=== PATIENT | female | born 1955 | race Caucasian/White ===

== ENCOUNTER → 2016-09-24 | Outpatient (CLI) | payer BC ==
--- NOTE | 2016-09-25 13:16 | MAMMOGRAPHY REPORT ---
THIS REPORT HAS BEEN AMENDED. BILATERAL DIGITAL SCREENING MAMMOGRAM TOMOSYNTHESIS WITH CAD: 09/24/2016 CLINICAL HISTORY: Routine screening examination. TECHNIQUE: Bilateral breast tomosynthesis in addition to standard 2D mammography was performed. Curr ent study was also evaluated with a Computer Aided Detection (CAD) system. COMPARISON: No prior exams were available for comparison. BREAST COMPOSITION: The tissue of both breasts is heterogeneously dense, which may obscure small ma sses. FINDINGS: There is an 18 mm asymmetry in the superior posterior right breast, only seen on the MLO view. Although this could represent normal overlapping tissue, additional spot compression tomosynt hesis views and possibly ultrasound are recommended to exclude an underlying mass, if prior outside mammograms are not obtained in a timely manner. There are benign coarse calcifications in the right breast. No other suspicious mass, architectural distortion or cluster of microcalcifications is seen. IMPRESSION: ACR BI-RADS CATEGORY 0: INCOMPLETE EVALUATION: NEED ADDITIONAL IMAGING EVALUATION The 18 mm asymmetry in the superior, posterior right breast needs compairson to prior outside mammog annette. If they are not obtained in a timely manner, additional spot compression tomosynthesis views a nd possibly ultrasound are recommended. The patient will be called to schedule an appointment. Approximately 10% of breast cancers are not detected with mammography. A negative mammographic repor t should not delay biopsy if a clinically suggestive mass is present. Manjula Quezada M.D. ay/:09/24/2016 15:37:26 Code Enforcement Inspector: Svetlana BENITEZ(Ever)([place]), [facility] letter sent: Need Priors 0 BI-RADS Code: ACR BI-RADS Category 0: Incomplete Evaluation: Need Additional Imaging Evaluation AMENDMENT: 10/15/2016 Manjula Quezada M.D. Prior [facility] 07/29/2011, 03/22/2013 and 08/18/2014 became avail able for review. The 18 mm asymmetry in the superior posterior right breast remains increasingly co nspicuous particularly on the tomosynthesis images comparing to the prior outside mammograms. Altho ugh this could represent overlapping tissue, additional spot compression tomosynthesis views and pos sibly ultrasound are recommended. The left breast appears stable comparing to the prior outside [place] mograms. Amended BI-RADS: ACR BI-RADS Category 0: Incomplete Evaluation: Need Additional Imaging Evaluation letter sent: [facility] 0
== END | disposition home or self-care (01) ==
LOC: C.MAMM 13:36
PROVIDERS: ATTEND Family Medicine
DX: Z12.31 Encounter for screening mammogram for malignant neoplasm of breast (principal); N64.89 Other specified disorders of breast

== ENCOUNTER → 2016-09-30 | Outpatient (CLI) | payer BC | END | disposition home or self-care (01) | LOC: C.MAMM 14:21 | PROVIDERS: ATTEND Internal Medicine Rheumatology | DX: M81.0 Age-related osteoporosis without current pathological fracture (principal); E55.9 Vitamin D deficiency, unspecified; Z79.83 Long term (current) use of bisphosphonates; M85.851 Other specified disorders of bone density and structure, right thigh; M85.852 Other specified disorders of bone density and structure, left thigh ==

== ENCOUNTER → 2016-10-24 | Outpatient (CLI) | payer BC ==
--- NOTE | 2016-10-24 13:04 | MAMMOGRAPHY REPORT ---
UNILATERAL RIGHT DIGITAL DIAGNOSTIC MAMMOGRAM TOMOSYNTHESIS: 10/24/2016 CLINICAL HISTORY: Callback from screening mammogram for right breast asymmetry. TECHNIQUE: Breast tomosynthesis in addition to standard 2D mammography was performed. Spot karmen dennis right MLO and right ML 2-D and tomosynthesis images were obtained. COMPARISON: Comparison is made to exam dated: 09/24/2016 mammogram - [facility]. BREAST COMPOSITION: The tissue of the right breast is heterogeneously dense, which may obscure smal l masses. FINDINGS: The previously described asymmetry seen within the right superior posterior breast efface s to a baseline appearance on the additional spot compression views, and has the appearance of arlyn l overlapping fibroglandular tissue on the tomosynthesis images. No suspicious mass or architectura l distortion is noted in this region on the additional views. Findings are benign and compatible wi th normal overlapping fibroglandular tissue. IMPRESSION: ACR BI-RADS CATEGORY 2: BENIGN The right breast asymmetry effaces on the additional views, and is benign and compatible with normal overlapping fibroglandular tissue. There is no mammographic evidence of malignancy. A 1 year scree jaclyn mammogram is recommended. The patient has been verbally notified of the results. Approximately 10% of breast cancers are not detected with mammography. A negative mammographic repor t should not delay biopsy if a clinically suggestive mass is present. Lurdes Kitchen M.D. /:10/24/2016 09:59:40 Kineseologist: Aruna Purdy, [facility] letter sent: Normal 1/2 BI-RADS Code: ACR BI-RADS Category 2: Benign
== END | disposition home or self-care (01) ==
LOC: C.MAMM 09:28
PROVIDERS: ATTEND Family Medicine
DX: N64.89 Other specified disorders of breast (principal)

== ENCOUNTER → 2017-10-05 | Outpatient (CLI) | payer OTHER | END | disposition home or self-care (01) | LOC: C.MAMM 09:21 | PROVIDERS: ATTEND Internal Medicine Rheumatology | DX: M81.0 Age-related osteoporosis without current pathological fracture (principal); M85.851 Other specified disorders of bone density and structure, right thigh; M85.852 Other specified disorders of bone density and structure, left thigh; E83.50 Unspecified disorder of calcium metabolism; Z79.1 Long term (current) use of non-steroidal anti-inflammatories (NSAID); Z79.83 Long term (current) use of bisphosphonates ==

== ENCOUNTER → 2017-10-13 | Outpatient (CLI) | payer OTHER | LOC: C.RDSM 08:52 | PROVIDERS: ATTEND Orthopaedic Surgery Sports Medicine | DX: R52 Pain, unspecified (principal) ==

== ENCOUNTER → 2018-02-08 | Outpatient (CLI) | payer OTHER ==
--- NOTE | 2018-02-08 07:50 | DIAGNOSTIC IMAGING REPORT ---
MRI THE RIGHT KNEE NO CONTRAST CLINICAL HISTORY: Right knee pain COMPARISON STUDY: Conventional radiographic study dated 10/13/2017 FINDINGS: Imaging was performed in the axial, sagittal, and coronal planes. The quadriceps and patellar tendons appear intact. The anterior and posterior cruciate ligaments appear intact. The medial and lateral collateral ligaments appear intact. No meniscal tears are visualized. There are no areas of marrow replacement to indicate neoplasm or occult fracture. IMPRESSION: 1. No evidence of internal derangement Electronically signed by: Surinder Villagomez M.D. 02/08/2018 7:49 AM Dictated Date/Time: 02/08/2018 7:46 AM
== END | disposition home or self-care (01) ==
LOC: C.MRIBC 07:01
PROVIDERS: ATTEND Orthopaedic Surgery
DX: M25.561 Pain in right knee (principal)